=== PATIENT | male | born 1970 | race Two or more races ===

== ENCOUNTER 2020-02-27 07:02 | Day surgery (SDC) | payer BC ==
[~2020-02-27] VITALS: Ht 175.3 cm; Wt 70.3 kg
[2020-02-27] VITALS (8 sets, daily range): BP systolic 92–119; BP diastolic 56–65
--- NOTE | 2020-02-27 06:36 | Anethesia Preoperative Eval ---
Anesthesia Pre-op PMH/ROS General Date of Evaluation: Feb 27, 2020 Time of Evaluation: 06:35 Anesthesiologist: rosa ASA Score: ASA 1 Mallampati Score Class I : Soft palate, uvula, fauces, pillars visible Class II: Soft palate, uvula, fauces visible Class III: Soft palate, base of uvula visible Class IV: Only hard plate visible Mallampati Classification: Class II Surgeon: aye Diagnosis: colon screening Surgical Procedure: colonoscopy Anesthesia History: none Social History: current smoker Family History: no anesthesia problems Allergies: Coded Allergies: No Known Allergies (Unverified , 02/25/20) Medications: see eMAR Patient NPO?: Yes Past Medical History Gastrointestinal/Genitourinary: Reports: other - gastritis Anesthesia Pre-op Phys. Exam Physician Exam Last Vital Signs Date Time Temp Pulse Resp B/P (MAP) Pulse Ox O2 Delivery O2 Flow Rate FiO2 02/27/20 07:35 97.7 49 18 110/59 100 Room Air Constitutional: NAD Neurologic: CN 2-12 intact Cardiovascular: RRR Respiratory: CTA Gastrointestinal: S/NT/ND Airway Exam Mallampati Score: Class II MO: limited Neck: flexible TMD: 2fb ROM: limited Anesthesia Pre-op A/P Labs Microbiology Date/Time Source Procedure Growth Status 02/25/20 11:15 Nasopharynx SARS-CoV-2 RdRp Gene Assay - Final Complete Risk Assessment & Plan Assessment: asa1 Plan: mac Status Change Before Surgery: No Pre-Antibiotics Drug: Naima Dickerson MD Feb 27, 2020 06:35
[~2020-02-27 07:02] MED LIST: Atropine Inj 1mg/10ml Syr IVP PRN; DiphenhydrAMINE 50mg/ml Inj IVP PRN; LR 1000ml 1,000 ML IVLG SCH; Midazolam 2mg/2ml Inj IVP PRN; fentaNYL 100 mcg/2 mL IV PRN
[2020-02-27] MEDS ORDERED: LR 1000ml 1,000 ML IVLG SCH (08:00)
--- NOTE | 2020-02-27 08:32 | Pre-Procedure Note/Attestation ---
Pre-Procedure Note/Attestation Complete Prior to Procedure Planned Procedure: not applicable Procedure Narrative: colonoscopy Indications for Procedure Pre-Operative Diagnosis: screening Attestation I attest that I discussed the nature of the procedure; its benefits; risks and complications; and alternatives (and the risks and benefits of such alternatives), prior to the procedure, with the patient (or the patient's legal representative phlebotomy services). I attest that, if there was a reasonable possibility of needing a blood tra nsfusion, the patient (or the patient's legal representative phlebotomy services) was given the [facility] standardized written summary, pursuant to the [place] Blood Safety Act ([place] Health and Safety Code # 1645, as amended). I attest that I re-evaluated the patient just prior to the surgery and that there has been no change in the patient's H&P, except as documented below: Barry Thibodeaux MD Feb 27, 2020 08:32
--- NOTE | 2020-02-27 08:33 | Short Stay Surgery H&P ---
History of Present Illness History of Present Illness Chief Complaint screening colon HPI Chace Neff is a 49 year old male who was admitted on for Screening Patient History Allergies: Coded Allergies: No Known Allergies (Unverified , 02/25/20) PAST MEDICAL HISTORY: (1) Gastritis Medication History No Active Prescriptions or Reported Meds Review of Systems Cardiovascular: Reports: no symptoms Respiratory: Reports: no symptoms Gastrointestinal: Reports: no symptoms Genitourinary: Reports: no symptoms Neurologic: Reports: no symptoms Endocrine: Reports: no symptoms Hematologic: Reports: no symptoms Physical Exam Vital Signs Last Vital Signs Date Time Temp Pulse Resp B/P (MAP) Pulse Ox O2 Delivery O2 Flow Rate FiO2 02/27/20 07:35 97.7 49 18 110/59 100 Room Air Skin: normal HENT: normal Heart: normal Lungs: normal Abdomen: normal Extremities: normal Plan Plan of Care colonoscopy Attestation Are the patient's medical conditions optimized for surgery? Attestation Response: yes Barry Thibodeaux MD Feb 27, 2020 08:32
[2020-02-27] MEDS ORDERED: Atropine Sulfate 0.4mg/ml inj ONE (09:00)
[2020-02-27] MEDS ORDERED: LR 1000ml ONE (09:00)
[2020-02-27] MEDS ORDERED: Lidocaine 1% MPF 10mg/ml 5ml ONE (09:00)
--- NOTE | 2020-02-27 09:18 | Endoscopy Procedure Note ---
Endoscopy Procedure Note General Indication for Procedure: screening Procedures Performed: colonoscopy Operative Findings/Diagnosis: hemorrhoids Specimen: none Pt Tolerated Procedure Well: Yes Estimated Blood Loss: none Anesthesia Anesthesiologist: acacia cabrera Anesthesia: MAC Inserted Devices Implant(s) used?: No Quality Quality of Bowel Preparation: Good Did scope reach the cecum?: Yes Was there any complications?: No GI Core Measures 50 yrs or older w/o bx or poly: No 10yrs. F/U recommended: Yes If not recommended, why?: Above average risk 18 years or older w/prev. colo: No Barry Thibodeaux MD Feb 27, 2020 09:18
--- NOTE | 2020-02-27 10:22 | Immediate Post-Op Evaluation ---
Immediate Post-Op Evalulation Immediate Post-Op Evalulation Procedure: colonoscopy Date of Evaluation: Feb 27, 2020 Time of Evaluation: 09:29 IV Fluids: 600ml lr Blood Products: none Estimated Blood Loss: negligible Blood Pressure Systolic: 110 Blood Pressure Diastolic: 63 Pulse Rate: 63 Respiratory Rate: 18 O2 Sat by Pulse Oximetry: 100 Temperature (Fahrenheit): 98.0 Pain Score (1-10): 0 Nausea: No Vomiting: No Complications none Patient Status: awake, reacts, patent Hydration Status: adequate Drug: Naima Dickerson MD Feb 27, 2020 10:22
--- NOTE | 2020-02-27 10:23 | 48 Hour Post Anesthesia Eval ---
Post Anesthesia Evaluation Procedure: colonoscopy Date of Evaluation: Feb 27, 2020 Time of Evaluation: 09:31 Blood Pressure Systolic: 112 0: 60 Pulse Rate: 57 Respiratory Rate: 18 Temperature (Fahrenheit): 98.0 O2 Sat by Pulse Oximetry: 100 Airway: patent Nausea: No Vomiting: No Pain Intensity: 0 Hydration Status: adequate Cardiopulmonary Status: stable Mental Status/LOC: patient returned to baseline Post-Anesthesia Complications: none Follow-up care needed: N/A Naima Harvey MD Feb 27, 2020 10:23
--- NOTE | 2020-02-27 10:30 | Procedure Note ---
DATE OF PROCEDURE: 02/27/2020 SURGEON: Barry Thibodeaux MD. PROCEDURE: Colonoscopy. ANESTHESIA: Per Dr. Jade. INSTRUMENT: Olympus adult flexible colonoscope. INDICATION: Screening colonoscopy. REASON FOR PROCEDURE: The procedure, risks, benefits, and possible consequences, including hemorrhage, aspiration, perforation and infection, and alternative treatments, were explained to the patient/legal guardian by Dr. Barry Thibodeaux and the patient/legal guardian understood and accepted these risks. PROCEDURE IN DETAIL: After informed consent was obtained and the patient was adequately sedated, first rectal exam was performed, which was positive for internal hemorrhoids. Then, the scope was advanced from the rectum into the cecum, then subsequently into terminal ileum. Quality of prep was good. 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 No mass, polyp, diverticula, or any pathology was seen. Retroflexion of rectum was performed, which shows evidence of small internal hemorrhoids. SUMMARY OF FINDINGS: 1. Small internal hemorrhoids. 2. Two colonic AVMs. See above for details. RECOMMENDATION: Repeat colonoscopy in 5 years. Barry Thibodeaux M.D. DR: MARBELLA JOB#: [id number] CC:
== END 2020-02-27 10:25 | disposition home or self-care (01) ==
LOC: GAS 07:02
DX: Z12.11 Encounter for screening for malignant neoplasm of colon (principal); K64.8 Other hemorrhoids; K55.20 Angiodysplasia of colon without hemorrhage; F17.200 Nicotine dependence, unspecified, uncomplicated
CPT/HCPCS: 45378; 93005; 94003; J0461; J2704; J7120; U0002; 94150